=== PATIENT | female | born 1965 | race Caucasian/White ===

== ENCOUNTER 2017-06-04 18:00 | Outpatient (CLI) | payer OTHER | END 2017-06-04 18:01 | disposition home or self-care (01) | LOC: SLEEPLAB 18:00 | PROVIDERS: ATTEND Family Medicine | DX: G47.33 Obstructive sleep apnea (adult) (pediatric) (principal); E11.9 Type 2 diabetes mellitus without complications; E66.9 Obesity, unspecified; R06.83 Snoring | CPT/HCPCS: 95806 ==

== ENCOUNTER 2018-04-13 12:10 | Outpatient (CLI) | payer OTHER ==
--- NOTE | 2018-04-13 13:23 | RAD ---
LEFT HAND RADIOGRAPHS 3 VIEWS: DATE: 04/13/2018. PROVIDED CLINICAL HISTORY: Left hand pain status post injury. FINDINGS: There is no evidence for a fracture or other acute osseous abnormality. If there is persistent clini bri concern, conservative management and followup imaging are advised. IMPRESSION: As above. POS: [facility]
== END 2018-04-13 12:11 | disposition home or self-care (01) ==
LOC: BICRAD 12:10
PROVIDERS: ATTEND Family Medicine
DX: S69.92XA Unspecified injury of left wrist, hand and finger(s), initial encounter (principal); N30.00 Acute cystitis without hematuria; E11.65 Type 2 diabetes mellitus with hyperglycemia
CPT/HCPCS: 82043; 87077; 87086; 87186

== ENCOUNTER 2018-10-20 18:52 | Observation (INO) | payer OTHER ==
[~2018-10-20 18:52] MED LIST: ISOVUE-370 76%-LOCM 1 ML ONE
[2018-10-20] MEDS ORDERED: Morphine 4 MG/ML VIAL ONE (19:15)
[2018-10-20] MEDS ORDERED: Ondansetron PF 4 MG/2 ML Vial ONE (19:15)
[2018-10-20 19:17] LABS: #Basophils 0.2 thou/uL (0.0-0.2); #Eosinphils 0.4 thou/uL (0.0-0.7); #Lymphocytes 3.5 thou/uL (1.20-3.40); #Monocytes 0.5 thou/uL (0.11-0.59); #Neutrophils 4.8 thou/uL (1.40-6.50); %Basophils 1.7 % (0.0-1.0); %Eosinophils 3.9 % (0.0-10.0); %Lymphocytes 37.2 % (21.0-51.0); %Monocytes 5.1 % (0.0-10.0); %Neutrophils 52.1 % (42.0-75.0); Hemoglobin 12.7 g/dL (12.0-16.0); Mean Corpuscular HGB CONC 36.1 g/dL (32.0-36.0); Mean Corpuscular Hemoglobin 29.7 pg (27.0-31.0); Mean Corpuscular Volume 82.2 fL (78.0-98.0); Platelet Count 410 thou/uL (130-400); RBC Distribution Width 12.7 % (11.5-14.5); White Blood Cell (WBC) Count 9.3 thou/uL (4.8-10.8)
--- NOTE | 2018-10-20 19:19 | RAD ---
XR Chest 1 View Portable HISTORY: Shortness of breath with chest pain. COMPARISON: None. FINDINGS: Heart size and mediastinum are within normal limits. The lungs are clear of infiltrates. Th ere are no significant bony findings. IMPRESSION: No active intrathoracic disease.
[2018-10-20 19:40] LABS: ALT (SGPT) 44 U/L (8-55); AST (SGOT) 29 U/L (5-34); Albumin 4.1 g/dL (3.5-5.0); Alkaline Phosphatase 115 U/L (40-150); Anion Gap 19 mmol/L (10-20); BUN (Urea Nitrogen) 13 mg/dL (9.8-20.1); Bilirubin, Total 0.2 mg/dL (0.2-1.2); CK (CPK) 80 U/L (29-168); Calc. Creatinine Clearance 0 mL/min (70-130); Calcium 9.3 mg/dL (7.8-10.44); Carbon Dioxide 18 mmol/L (22-29); Chloride 98 mmol/L (98-107); Estimated GFR-MDRD 55; Globulin 4.3 g/dL (2.4-3.5); Glucose 517 mg/dL (70-105); Lipase 49 U/L (8-78); Potassium 4.4 mmol/L (3.5-5.1); Protein, Total 8.4 g/dL (6.0-8.3); Sodium 131 mmol/L (136-145)
--- NOTE | 2018-10-20 19:58 | ULT ---
Gallbladder ultrasound: HISTORY: Right upper quadrant pain Real-time imaging of the right upper quadrant was performed, the gallbladder is slightly contracted, the patient was not fasting for this exam. No gallstones are identified, the common duct is 3 mm. Visualized liver parenchyma shows mild increased echogenicity and measures 17.4 cm in length. Right kidney is normal in size and not obstructed. The pancreas is obscured. IMPRESSION: Fatty change of the liver.
[2018-10-20 20:09] LABS: Bilirubin Negative (Negative); Blood, Urine Negative (Negative); Clarity Clear (Clear); Glucose, Urine (Dipstick) Greater than 1000 mg/dL (Negative); Leukocyte Negative Leu/uL (Negative); Nitrite Negative (Negative); Protein, Urine (Dipstick) Negative (Neg-Trace); Urobilinogen Normal mg/dL (Less than 2)
--- NOTE | 2018-10-20 20:23 | CT ---
CT angiogram of chest performed with intravenous contrast enhancement with 3-D reconstructions HISTORY: Chest pain shortness of breath and elevated d-dimer. COMPARISON: None. FINDINGS: The lungs are clear of any infiltrative process. No pulmonary nodules or pleural effusions are identified. No signs of failure. The thoracic aorta is normal in caliber. There is fair pulmonary artery opacification more distal emb lashon cannot be excluded on the basis of this exam but no central embolus is seen. Visualized liver parenchyma shows no focal findings. Liver is incompletely visualized but may be slig htly enlarged. No significant bony findings. IMPRESSION: No CT evidence of pulmonary embolus. Suggestion of a mildly enlarged liver.
[2018-10-20 20:51] LABS: Base Excess-Venous -1.7 mmol/L (-2.0 to 3.0); Bicarbonate (HCO3v) 22.3 mmol/L (22.0-28.0); CO2 Tension (PvCO2) 34.8 mmHg (40.0-50.0); Calcium, Ionized 1.15 mmol/L (See Comments:); Chloride 101 mmol/L (98-107); Potassium 4.6 mmol/L (3.5-5.1); Sodium 137 mmol/L (138-145); T. Carbon Dioxide 23.4 mmol/L (22.0-28.0); vO2 Saturation-calc 95.4 % (60.0-85.0)
[2018-10-20] MEDS ORDERED: Aspirin 325 MG TAB ONE (21:03)
[2018-10-20 22:50] LABS: Troponin I Less than 0.010 ng/mL (< 0.028)
[2018-10-20 23:04] LABS: Cardiac Risk 8.2 (Less than 4.5); Cholesterol 254 mg/dl (< 200 Desired); HDL Cholesterol 31 mg/dL (>60 Neg Risk); Triglycerides 735 mg/dL (Less than 150)
[2018-10-20 23:18] VITALS: BMI 39.4
[2018-10-21 01:48] LABS: Troponin I Less than 0.010 ng/mL (< 0.028)
[2018-10-21] MEDS ORDERED: HumaLOG 300 UNITS/3 ML VIAL SC PRN ×2 (02:41)
[2018-10-21] MEDS ORDERED: Dextrose 5% in Water 1,000 ML IV PRN (02:41)
[2018-10-21] MEDS ORDERED: Dextrose 50% Abboject 50 ML SYRINGE SLOW IVP PRN (02:41)
[2018-10-21 09:03] LABS: #Basophils 0.1 thou/uL (0.0-0.2); #Eosinphils 0.4 thou/uL (0.0-0.7); #Lymphocytes 2.8 thou/uL (1.20-3.40); #Monocytes 0.4 thou/uL (0.11-0.59); #Neutrophils 3.6 thou/uL (1.40-6.50); %Basophils 1.8 % (0.0-1.0); %Eosinophils 5.4 % (0.0-10.0); %Lymphocytes 38.1 % (21.0-51.0); %Monocytes 5.1 % (0.0-10.0); %Neutrophils 49.5 % (42.0-75.0); Hemoglobin 11.6 g/dL (12.0-16.0); Mean Corpuscular Hemoglobin 28.1 pg (27.0-31.0); Mean Corpuscular Volume 82.9 fL (78.0-98.0); Mean Platelet Volume 8.2 fL (7.4-10.4); Platelet Count 340 thou/uL (130-400); RBC Distribution Width 12.7 % (11.5-14.5); Red Blood Cell (RBC) Count 4.14 mill/uL (4.20-5.40); White Blood Cell (WBC) Count 7.2 thou/uL (4.8-10.8)
[2018-10-21 09:17] LABS: Anion Gap 15 mmol/L (10-20); BUN (Urea Nitrogen) 8 mg/dL (9.8-20.1); Calc. Creatinine Clearance 144 mL/min (70-130); Carbon Dioxide 22 mmol/L (22-29); Chloride 104 mmol/L (98-107); Estimated GFR-MDRD 84; Glucose 234 mg/dL (70-105); Potassium 4.1 mmol/L (3.5-5.1); Sodium 137 mmol/L (136-145)
[2018-10-21 12:39] VITALS: BP 132/76; TEMP 97.4
--- NOTE | 2018-10-21 12:41 | NM ---
NUCLEAR MEDICINE CARDIAC MYOCARDIAL PERFUSION SPECT EJECTION FRACTION STUDY WALL MOTION CINE: DATE: 10/21/2018 HISTORY: 53-year-old female with diabetes mellitus type 2 and dyslipidemia presents with chest pain. TECHNIQUE: Number of days: 1 Rest study: Not performed Pharmacologic stress: Lexiscan dose: 0.4 mg Stress study: Technetium 99m-sestamibi (Cardiolite) dose: 27.8 mCi FINDINGS: CARDIAC (MYOCARDIAL PERFUSION) SPECT Distribution of sestamibi is homogeneous throughout the left ventricle, with myocardial perfusion def ects. EJECTION FRACTION STUDY Left ventricular EF = 80 % WALL MOTION CINE The left ventricular wall motion is normal. There is normal systolic wall thickening. IMPRESSION: Normal.
[2018-10-21] MEDS ORDERED: Regadenoson 0.4 MG/5 ML SYRINGE ONE (15:00)
== END 2018-10-21 15:06 | disposition home or self-care (01) ==
LOC: ERS 18:52 → 2SW 22:13
PROVIDERS: ADMIT Family Medicine; ATTEND Family Medicine
DX: R07.9 Chest pain, unspecified (principal); K76.0 Fatty (change of) liver, not elsewhere classified; E11.65 Type 2 diabetes mellitus with hyperglycemia; E78.5 Hyperlipidemia, unspecified; Z88.0 Allergy status to penicillin; Z79.899 Other long term (current) drug therapy
CPT/HCPCS: 36415; 36416; 71045; 71275; 76705; 78452; 80048; 80053; 80061; 81003; 82010; 82330; 82550; 82803; 83690; 84484; 85025; 85379; 93005; 93017; 96361; 96374; 96375; A9500; G0378; J2270; J2405; J2785; Q9966

== ENCOUNTER 2018-10-27 10:54 | Outpatient (CLI) | payer OTHER ==
--- NOTE | 2018-10-27 13:20 | RAD ---
CERVICAL SPINE THREE VIEWS: 10/27/18 COMPARISON: None. HISTORY: Cervical spine pain for one week. FINDINGS: The lateral examination demonstrates mild disc space narrowing and anterior osteophyte formation at C 4-5. There is disc space narrowing with mild anterior and posterior osteophyte at C6-7. There is mult ilevel mid cervical spine bilateral facet and uncovertebral osteophyte formation. Open mouth odontoid view demonstrates a normal appearing dens and C1-2 articulation. No acute osseous abnormality is kris dent. No prevertebral soft tissue swelling. IMPRESSION: Cervical spine degenerative change as detailed above. Recommend MRI if there are radicular symptoms. POS: [facility]
--- NOTE | 2018-10-27 13:21 | RAD ---
FRONTAL AND LATERAL IMAGING OF THE THORACIC SPINE: 10/27/18 COMPARISON: None. HISTORY: Acute mid back pain. FINDINGS: There is no anterolisthesis or retrolisthesis seen within the thoracic spine. Thoracic pedicles appea r intact on frontal imaging. No acute osseous abnormality. IMPRESSION: No acute findings. POS: [facility]
== END 2018-10-27 10:55 | disposition home or self-care (01) ==
LOC: BICRAD 10:54
PROVIDERS: ATTEND Family Medicine
DX: M54.2 Cervicalgia (principal); M54.9 Dorsalgia, unspecified; M47.812 Spondylosis without myelopathy or radiculopathy, cervical region
CPT/HCPCS: 36415; 72040; 72072; 83520; 86038; 86140; 86200; 86225

== ENCOUNTER 2018-12-16 07:53 | Outpatient (CLI) | payer OTHER ==
[2018-12-16 09:13] LABS: #Basophils 0.1 thou/uL (0.0-0.2); #Eosinphils 0.4 thou/uL (0.0-0.7); #Lymphocytes 3.2 thou/uL (1.20-3.40); #Monocytes 0.4 thou/uL (0.11-0.59); %Basophils 1.2 % (0.0-1.0); %Eosinophils 4.2 % (0.0-10.0); %Monocytes 4.8 % (0.0-10.0); %Neutrophils 54.9 % (42.0-75.0); Hemoglobin 12.4 g/dL (12.0-16.0); Mean Corpuscular HGB CONC 32.4 g/dL (32.0-36.0); Mean Corpuscular Hemoglobin 26.9 pg (27.0-31.0); Mean Corpuscular Volume 83.1 fL (78.0-98.0); Mean Platelet Volume 8.1 fL (7.4-10.4); Platelet Count 403 thou/uL (130-400); RBC Distribution Width 12.7 % (11.5-14.5); Red Blood Cell (RBC) Count 4.61 mill/uL (4.20-5.40); White Blood Cell (WBC) Count 9.1 thou/uL (4.8-10.8)
[2018-12-16 09:21] LABS: INR-International Normal Ratio 1.1; PTT 29.5 SEC (22.9-36.1); Prothrombin Time 13.7 SEC (12.0-14.7)
[2018-12-16 09:23] LABS: BHCG - Serum Negative (NEGATIVE); Pregs Control Background? CLEAR/WHITE (CLR/WHITE); Pregs Control Bar Appear? YES (CONTROL BAR)
[2018-12-16 09:46] LABS: ALT (SGPT) 21 U/L (8-55); AST (SGOT) 18 U/L (5-34); Alkaline Phosphatase 128 U/L (40-110); Anion Gap 14 mmol/L (10-20); BUN (Urea Nitrogen) 8 mg/dL (9.8-20.1); Bilirubin, Total 0.5 mg/dL (0.2-1.2); Calc. Creatinine Clearance 0 mL/min (70-130); Calcium 8.9 mg/dL (7.8-10.44); Carbon Dioxide 22 mmol/L (22-29); Cardiac Risk 4.2 (Less than 4.5); Chloride 102 mmol/L (98-107); Cholesterol 152 mg/dl (< 200 Desired); Estimated GFR-MDRD 86; Globulin 2.8 g/dL (2.4-3.5); Glucose 187 mg/dL (70-105); HDL Cholesterol 36 mg/dL (>60 Neg Risk); LDL Cholesterol, Calculated 87 mg/dL; Potassium 4.2 mmol/L (3.5-5.1); Protein, Total 6.8 g/dL (6.0-8.3); Sodium 134 mmol/L (136-145); Triglycerides 143 mg/dL (Less than 150)
== END 2018-12-16 07:54 | disposition home or self-care (01) ==
LOC: LABBT 07:53
PROVIDERS: ATTEND Internal Medicine Cardiovascular Disease
DX: Z01.812 Encounter for preprocedural laboratory examination (principal); R07.9 Chest pain, unspecified
CPT/HCPCS: 36415; 80053; 80061; 83036; 84703; 85025; 85610; 85730

== ENCOUNTER 2018-12-22 05:52 | Day surgery (SDC) | payer OTHER ==
[2018-12-16 08:17] VITALS: BMI 36.8
[2018-12-22] MEDS ORDERED: Lidocaine 1% (PF) 30 ML VIAL ONE (08:22)
[2018-12-22] MEDS ORDERED: Heparin 10,000 UNITS/1 ML VIAL ONE (08:38)
[2018-12-22] MEDS ORDERED: Nitroglycerin 100MG/250ML BOT 250 ML ONE (08:38)
[2018-12-22] MEDS ORDERED: Verapamil 5 MG/2 ML VIAL ONE (08:38)
[2018-12-22] MEDS ORDERED: Midazolam HCl 2 mg/2 ml Vial ONE ×2 (08:57→09:09)
[2018-12-22] MEDS ORDERED: Fentanyl 100 MCG/2 ML VIAL ONE (08:58)
== END 2018-12-22 13:05 | disposition home or self-care (01) ==
LOC: CCL 05:52
PROVIDERS: ATTEND Internal Medicine Cardiovascular Disease
PROC: 4A023N7 Measurement of Cardiac Sampling and Pressure, Left Heart, Percutaneous Approach (ICD-10-PCS; principal; 2018-12-22)
PROC: B2111ZZ Fluoroscopy of Multiple Coronary Arteries using Low Osmolar Contrast (ICD-10-PCS; principal; 2018-12-22)
DX: I25.10 Atherosclerotic heart disease of native coronary artery without angina pectoris (principal); E11.9 Type 2 diabetes mellitus without complications; Z88.0 Allergy status to penicillin; Z88.8 Allergy status to other drugs, medicaments and biological substances
CPT/HCPCS: 93458; 99152; J1644; J2001; J2250; J3010

== ENCOUNTER 2018-12-28 07:38 | Outpatient (CLI) | payer OTHER ==
--- NOTE | 2018-12-28 09:48 | MMO ---
Bilateral MAMMO Bilat Screen [facility]. CLINICAL HISTORY: Patient is 53 years old and is seen for screening. The patient has the following family history of breast cancer: sister. The patient has no personal history of cancer. VIEWS: The views performed were: bilateral craniocaudal with tomosynthesis and bilateral mediolateral oblique with tomosynthesis. FILMS COMPARED: The present examination has been compared to prior imaging studies performed at [facility] on 12/24/2016, and at [facility] on 05/22/2010, 04/15/2011 and 08/04/2014. This study has been interpreted with the assistance of computer-aided detection. MAMMOGRAM FINDINGS: There are scattered fibroglandular densities. There are no suspicious masses, suspicious calcifications, or new areas of architectural distortion. IMPRESSION: THERE IS NO MAMMOGRAPHIC EVIDENCE OF MALIGNANCY. A ROUTINE FOLLOW-UP MAMMOGRAM IN 1 YEAR IS RECOMMENDED. THE RESULTS OF THIS EXAM WERE SENT TO THE PATIENT. ACR BI-RADS Category 1 - Negative MAMMOGRAPHY NOTE: 1. A negative mammogram report should not delay a biopsy if a dominant of clinically suspicious mass is present. 2. Approximately 10% to 15% of breast cancers are not detected by mammography. 3. Adenosis and dense breasts may obscure an underlying neoplasm. Reported by: EDILSON CARO MD Electonically Signed: [id number]
== END 2018-12-28 07:39 | disposition home or self-care (01) ==
LOC: BICMAMMO 07:38
PROVIDERS: ATTEND Family Medicine
DX: Z12.31 Encounter for screening mammogram for malignant neoplasm of breast (principal); Z80.3 Family history of malignant neoplasm of breast
CPT/HCPCS: 77063; 77067